=== PATIENT | female | born 1970 | race Asian ===

== ENCOUNTER 2023-02-10 18:07 | Emergency (ER) | payer OTHER ==
[~2023-02-10] VITALS: Ht 147.3 cm; Wt 52.3 kg
[2023-02-10 18:08] VITALS: TEMP 98
[2023-02-10] MEDS ORDERED: PERTUSS(ACELL),DIPH,TET VAC/PF 0.5 ML SYRINGE IM. ONE (18:30)
[2023-02-10] MEDS ORDERED: NEOMYCIN/BACITRACIN/POLYMYXIN B OINTMENT PACKET TP ONE (18:30)
[2023-02-10] MEDS ORDERED: LIDOCAINE 1% 10 ML VIAL PERC ONE (18:30)
[2023-02-10 18:40] VITALS: BP 124/71; PULSE 64; RESP 17
[2023-02-10] MEDS ORDERED: CEPH-558 PO (19:07)
== END 2023-02-10 19:28 | disposition home or self-care (01) ==
LOC: EMS 18:07
DX: S61.411A Laceration without foreign body of right hand, initial encounter (principal); X58.XXXA Exposure to other specified factors, initial encounter; Y93.89 Activity, other specified; Y92.89 Other specified places as the place of occurrence of the external cause; Y99.8 Other external cause status
CPT/HCPCS: 99283; 90715; 90471; 12002; J3490